=== PATIENT | male | born 1955 | race Caucasian/White ===

== ENCOUNTER 2021-07-14 21:35 | Emergency (ER) | payer MEDICARE, OTHER ==
[2021-07-14] MEDS ORDERED: Diphtheria,Pertussis(Acell),Tetanus Vaccine 0.5 ML Syringe IM ONE (22:08)
[2021-07-14] MEDS ORDERED: Lidocaine 1% 30 ML SDV INJECT ONE (22:09)
[2021-07-14 22:16] VITALS: BP 120/74; PULSE 60
[2021-07-14] MEDS ORDERED: Bacitracin Oint 1 GM U/D Packet TOP ONE (22:57)
== END 2021-07-14 23:06 | disposition home or self-care (01) ==
LOC: DL.ED 21:35
DX: S61.211A Laceration without foreign body of left index finger without damage to nail, initial encounter (principal); I10 Essential (primary) hypertension; N40.0 Benign prostatic hyperplasia without lower urinary tract symptoms; Z87.891 Personal history of nicotine dependence; Z23 Encounter for immunization; Z79.82 Long term (current) use of aspirin; Z79.899 Other long term (current) drug therapy; W26.8XXA Contact with other sharp object(s), not elsewhere classified, initial encounter; Y93.44 Activity, trampolining
CPT/HCPCS: 12001; 90471; 90715; 99283-25

== ENCOUNTER 2023-03-09 17:50 | Emergency (ER) | payer MEDICARE ==
[2023-03-09 17:59] VITALS: BP 158/102; PULSE 77
[2023-03-09 18:34] LABS: BASOPHILS PERCENT AUTO 0.3 % (0.0-1.0); EOSINOPHILS PERCENT AUTO 3.4 % (1.0-3.0); HEMATOCRIT 34.1 % (40.0-54.0); LYMPHOCYTES PERCENT AUTO 21.4 % (20.5-50.1); MEAN CORPUSCULAR HEMOGLOBIN 29.2 pg (27.0-34.0); MEAN CORPUSCULAR HGB CONC 32.3 g/dL (33.0-35.0); MEAN CORPUSCULAR VOLUME 90.5 fL (80-100); MONOCYTES PERCENT AUTO 14.3 % (2-8); NEUTROPHILS PERCENT AUTO 60.6 % (42.2-75.2); PLATELET COUNT,PLT 292 10^3/uL (150-450); RED BLOOD CELL COUNT 3.77 10^6/uL (4.6-6.2); WHITE BLOOD CELL COUNT,WBC 9.9 10^3/uL (5.0-10.0)
[2023-03-09 19:00] LABS: PROTHROMBIN TIME 9.8 SEC (9.0-12.0)
== END 2023-03-09 19:53 | disposition home or self-care (01) ==
LOC: DL.ED 17:50
DX: M96.830 Postprocedural hemorrhage of a musculoskeletal structure following a musculoskeletal system procedure (principal); I10 Essential (primary) hypertension; Z96.652 Presence of left artificial knee joint; Z79.82 Long term (current) use of aspirin; Z79.899 Other long term (current) drug therapy
CPT/HCPCS: 36415; 85025; 85610; 85730; 99283

== ENCOUNTER 2024-03-25 05:59 | Day surgery (SDC) | payer MEDICARE, OTHER ==
[2024-03-25] MEDS ORDERED: fentaNYL 100 MCG/2 ML SDV IV ONE (06:13)
[2024-03-25] MEDS ORDERED: Midazolam 1 MG/ML 2 ML SDV ONE (06:13)
[2024-03-25] MEDS ORDERED: Midazolam 1 MG/ML 2 ML SDV IV ONE (06:13)
[2024-03-25] MEDS ORDERED: fentaNYL 100 MCG/2 ML SDV ONE (06:14)
[2024-03-25] MEDS: Dextrose 5%-0.45% NaCl 1,000 ML IV SCH (06:26)
[2024-03-25] MEDS: fentaNYL 100 MCG/2 ML SDV IV ONE ×2 (07:17)
[2024-03-25] MEDS: Midazolam 1 MG/ML 2 ML SDV IV ONE ×2 (07:18)
[2024-03-25 08:45] VITALS: BP 131/73; PULSE 50
== END 2024-03-25 08:56 | disposition home or self-care (01) ==
LOC: DL.ENDO 05:59
PROVIDERS: ATTEND Internal Medicine Gastroenterology
DX: K31.819 Angiodysplasia of stomach and duodenum without bleeding (principal); K21.9 Gastro-esophageal reflux disease without esophagitis; K63.5 Polyp of colon; I10 Essential (primary) hypertension; N40.0 Benign prostatic hyperplasia without lower urinary tract symptoms; Z79.899 Other long term (current) drug therapy
CPT/HCPCS: 43239; J2250; J3010; J7799; 88305

== ENCOUNTER → 2024-03-26 | Day surgery (SDC) | payer MEDICARE, OTHER ==
[~2024-03-26] MED LIST: Midazolam 1 MG/ML 2 ML SDV IV ONE; Midazolam 1 MG/ML 2 ML SDV ONE; fentaNYL 100 MCG/2 ML SDV IV ONE; fentaNYL 100 MCG/2 ML SDV ONE
[2024-03-26] MEDS: Dextrose 5%-0.45% NaCl 1,000 ML IV SCH (06:23)
[2024-03-26] MEDS: fentaNYL 100 MCG/2 ML SDV IV ONE ×3 (06:59→07:11)
[2024-03-26] MEDS: Midazolam 1 MG/ML 2 ML SDV IV ONE ×6 (07:00→07:08)
[2024-03-26 07:58] VITALS: PULSE 49
[2024-03-26 08:38] VITALS: BP 122/65
== END ==
LOC: DL.ENDO 05:53
PROVIDERS: ATTEND Internal Medicine Gastroenterology
DX: Z12.11 Encounter for screening for malignant neoplasm of colon (principal); K21.9 Gastro-esophageal reflux disease without esophagitis; I10 Essential (primary) hypertension; K63.5 Polyp of colon; N40.0 Benign prostatic hyperplasia without lower urinary tract symptoms
CPT/HCPCS: 45380; J2250; J3010; J7799; 88305

== ENCOUNTER 2024-05-10 05:56 | Day surgery (SDC) | payer MEDICARE, OTHER ==
[2024-05-10] MEDS ORDERED: Midazolam 1 MG/ML 2 ML SDV IV ONE (06:06)
[2024-05-10] MEDS ORDERED: fentaNYL 100 MCG/2 ML SDV IV ONE (06:06)
[2024-05-10] MEDS ORDERED: fentaNYL 100 MCG/2 ML SDV ONE (06:06)
[2024-05-10] MEDS ORDERED: Midazolam 1 MG/ML 2 ML SDV ONE (06:06)
[2024-05-10] MEDS: Dextrose 5%-0.45% NaCl 1,000 ML IV SCH (06:25)
[2024-05-10] MEDS: fentaNYL 100 MCG/2 ML SDV IV ONE ×2 (07:07→07:08)
[2024-05-10] MEDS: Midazolam 1 MG/ML 2 ML SDV IV ONE ×6 (07:09→07:17)
[2024-05-10 08:45] VITALS: BP 100/68; PULSE 55
== END 2024-05-10 08:51 | disposition home or self-care (01) ==
LOC: DL.ENDO 05:56
PROVIDERS: ATTEND Internal Medicine Gastroenterology
DX: Z12.11 Encounter for screening for malignant neoplasm of colon (principal); D12.3 Benign neoplasm of transverse colon
CPT/HCPCS: 45385; J2250; J3010; 88305

== ENCOUNTER 2024-07-02 10:10 | Emergency (ER) | payer MEDICARE, OTHER ==
[2024-07-02] MEDS: Aspirin 81 MG Tab.Chew PO ONE (10:20)
[2024-07-02 10:27] LABS: HEMATOCRIT 44.7 % (40.0-54.0); HEMOGLOBIN 14.6 g/dL (14.0-18.0); MEAN CORPUSCULAR HEMOGLOBIN 29.1 pg (27.0-34.0); MEAN CORPUSCULAR HGB CONC 32.7 g/dL (33.0-35.0); MEAN CORPUSCULAR VOLUME 89.2 fL (80-100); PLATELET COUNT,PLT 293 10^3/uL (150-450); RED BLOOD CELL COUNT 5.01 10^6/uL (4.6-6.2); WHITE BLOOD CELL COUNT,WBC 10.7 10^3/uL (5.0-10.0)
[2024-07-02 10:32] LABS: BASOPHILS PERCENT AUTO 0.2 % (0.0-1.0); EOSINOPHILS PERCENT AUTO 3.2 % (1.0-3.0); LYMPHOCYTES PERCENT AUTO 20.4 % (20.5-50.1); NEUTROPHILS PERCENT AUTO 67.2 % (42.2-75.2)
[2024-07-02 10:42] LABS: PROTHROMBIN TIME 10.3 SEC (9.0-12.0)
[2024-07-02 10:50] LABS: A/G RATIO 0.9; ALBUMIN 3.5 g/dL (3.4-5.0); ANION GAP 9.1 mEq/L (7-13); BILIRUBIN TOTAL 0.6 mg/dL (0.2-1.0); BUN/CREATININE RATIO 15.3 (No establ ref range); CALCIUM 9.1 mg/dL (8.5-10.1); CREATININE 0.98 mg/dL (0.70-1.30); EST CRCL DRUG DOSING (CG) 86.22 mL/min; POTASSIUM,K 4.1 mmol/L (3.5-5.1); PROTEIN TOTAL,TP 7.2 g/dL (6.4-8.2)
[2024-07-02 11:04] LABS: EOSINOPHILS PERCENT MAN 6 % (1-3); LYMPHOCYTES PERCENT MAN 20 % (20-50); MONOCYTES PERCENT MAN 8 % (2-8); PLATELET COUNT ESTIMATE ADEQUATE; SEG NEUTROPHILS PERCENT MAN 66 % (42-75)
[2024-07-02] MEDS: Aluminum Hydroxide/Magnesium Hydroxide/Simethicone Susp 30 ML Cup PO ONE (11:56)
[2024-07-02] MEDS: Famotidine 20 MG Tab PO ONE (11:57)
[2024-07-02 13:52] VITALS: BP 132/74; PULSE 54
== END 2024-07-02 13:31 | disposition home or self-care (01) ==
LOC: DL.ED 10:10
DX: R07.89 Other chest pain (principal); I10 Essential (primary) hypertension; K21.9 Gastro-esophageal reflux disease without esophagitis; E78.00 Pure hypercholesterolemia, unspecified; Z79.899 Other long term (current) drug therapy
CPT/HCPCS: 36415; 71045; 80053; 83690; 84484; 85025; 85610; 93005; 93010; 99284; 99285; A9270